=== PATIENT | male | born 1980 | race Two or more races ===

== ENCOUNTER 2024-11-25 12:40 | Emergency (ER) | payer MEDICARE, OTHER ==
[~2024-11-25] VITALS: Ht 165.1 cm; Wt 75.3 kg
[2024-11-25] MEDS ORDERED: FAMOTIDINE/PF INJ 20 MG/2 ML VIAL IV ONE (13:12)
[2024-11-25] MEDS ORDERED: ONDANSETRON HCL/PF 4 MG/2 ML VIAL ONE (13:12)
[2024-11-25 13:20] LABS: PLATELET COUNT (AUTO) 259 K/uL (150-450); RED BLOOD CELL COUNT(AUTO) 4.54 MIL/uL (4.5-6.0); RED CELL DISTRIBUTION WIDTH 12.8 % (11.5-15.0); WHITE BLOOD COUNT (AUTO) 9.9 K/uL (4.3-11.0)
[2024-11-25] MEDS: ONDANSETRON HCL/PF 4 MG/2 ML VIAL IVP ONE (13:23)
[2024-11-25] MEDS: FAMOTIDINE/PF INJ 20 MG/2 ML VIAL IV ONE (13:24)
[2024-11-25 13:47] LABS: ASPARTATE AMINOTRANSFERASE 16.0 U/L (15-37); CALCIUM, SERUM 9.0 mg/dL (8.5-10.1); CREATININE 0.9 mg/dL (0.6-1.3); SODIUM SERUM 137.0 mmol/L (136-145); TOTAL PROTEIN, SERUM 7.5 g/dL (6.4-8.2); UREA NITROGEN, BLOOD 24.0 mg/dL (7-18)
[2024-11-25] MEDS ORDERED: ONDA4TAB11 PO (14:40)
[2024-11-25] MEDS: IV NS 0.9% 1,000 ML BAG IV ONE (14:41)
[2024-11-25 16:51] VITALS: BP 130/96; TEMP 98.3; O2SAT 96
== END 2024-11-25 16:52 | disposition home or self-care (01) ==
LOC: ER 12:43
DX: R10.13 Epigastric pain (principal); R11.2 Nausea with vomiting, unspecified
CPT/HCPCS: 99285; 96374; 76705; 96361; 96375; 93005; 85025; 80048; 83690; 80076; 36415; J1308; J2405; J7030